=== PATIENT | male | born 1960 | race African-American/Black ===

== ENCOUNTER 2017-07-11 06:00 | Inpatient (IN) ==
[2017-07-11] MEDS ORDERED: DILTIAZEM 50 MG/10 ML VIAL IV STA (06:14)
[2017-07-11] MEDS ORDERED: ASPIRIN 325 MG TABLET PO STA (06:14)
--- NOTE | 2017-07-11 06:20 | Emergency Department Note ---
Rafa Duarte Brooke, am scribing for, and in the presence of, Eugenio Santamaria MD 06:16 . Hina Duarte James D, MD, personally performed the services described in this documentation, ascribed by Winifred Craig in my presence, and it is both accurate and complete 618 . Arrival - Arrival Chief Complaint: Chest Pain Stated Complaint: chest pain,SOB ED Nursing Triage Note: C/O Chest pain-midsternal and shortness of breath. Onset around 0500 while unloading a truck at work. Mode of Arrival: Ambulatory Limitations: No Limitations Source: Patient, RN Notes Reviewed Time Seen by Provider: 07/11/17 06:14 - History of Present Illness HPI Narrative: Patient is a 56 year old male who presents to the ED with c/o chest pain and shortness of breath that started around 0500 this morning. Patient says he feels "jittery" now. He has never been told, in the past, that he had an irregular heart beat. Patient says he was diaphoretic, when the pain started, but says he was unloading his truck. Patient is a truck sales manager. Patient has PMHx of HTN and dyslipidemia but does not have a history of diabetes or thyroid problems. Patient is not a smoker and does not do any drugs. Onset (ago): hour(s) (1) Allergies/Adverse Reactions: Allergies Allergy/AdvReac Type Severity Reaction Status Date / Time No Known Allergies Allergy Verified 07/11/17 06:05 Home Medications: Home Medications Medication Instructions Recorded Confirmed Type Pravastatin [Pravachol] 40 mg PO BEDTIME 07/11/17 07/11/17 History Valsartan [Diovan] 320 mg PO DAILY 07/11/17 07/11/17 History Review of System - Review of System 12 point system: reviewed and no additional remarkable complaints except as stated - Review of System Constitutional: Present: diaphoresis. Absent: fever Respiratory: Present: other (shortness of breath). Absent: respiratory distress Cardiovascular: Present: chest pain Skin: Absent: rash Medical,Surgical,& Family Hx - Medical History Cardio: History of: Hypertension Endocrine: History of: Dyslipidemia - Social History Smoking Status: Never smoker Frequency of Alcohol Use: None Type of Drug Use: None Exam Vital Signs: Vital Signs Temperature 98.8 F 07/11/17 06:05 Pulse Rate 101 H 07/11/17 06:09 Respiratory Rate 22 07/11/17 06:09 Blood Pressure 156/114 07/11/17 06:09 O2 Sat by Pulse Oximetry 98 07/11/17 06:09 GENERAL: This is a well-nourished well-developed black male in no apparent distress. VITAL SIGNS: Reviewed HEENT: Head is atraumatic and normocephalic. Pupils are equal round react to light. Extraocular movements are intact. Oropharynx is benign with moist mucous membranes. NECK: Neck is soft and supple without tenderness. There are no masses. There is no lymphadenopathy. LUNGS: Lungs are clear to auscultation. Chest rises symmetrically. There is no chest wall tenderness. CV: Heart is irregularly irregular with rapid rate without murmurs rubs or gallops. ABDOMEN: Abdomen is soft, nontender to palpation. There are no abdominal abnormal masses palpated. There is no organomegaly. Bowel sounds are present and active. SKIN: Skin is slightly cool and moist. No rash. EXTREMITIES: Patient has full range of motion without tenderness. There is no pedal edema. NEUROLOGIC: Awake alert and oriented 4. Cranial nerves II through XII are grossly intact. Motor is 5 over 5 in all extremities bilaterally. Course Course Narrative: Patient was given Cardizem bolus and infusion while in the emergency department. - Consultations Consultation #1: Discussed with hospitalist. Patient will be admitted to their service. Time: 08:07 Results - Labs CBC & BMP: 07/11/17 06:11 07/11/17 06:11 Lab Results: I have reviewed the patients labs Labs: Laboratory Tests 07/11/17 07/11/17 06:11 07:11 Troponin I < 0.015 TSH 3rd Generation 4.250 H Urine Opiates Screen Negative Ur Barbiturates Screen Negative Ur Phencyclidine Scrn Negative U Amphetamine/Methamph Negative U Benzodiazepines Scrn Negative U Cocaine Metab Screen Negative U Cannabinoids Screen Negative - EKG EKG results: interpreted by ERMD - Impressions EKG: Atrial fib with rapid ventricular response, rate 117, nonspecific ST-T wave changes, normal axis. - Diagnostic Findings Procedure: Chest x-ray: image reviewed by me (No infiltrates, no pleural effusions.) Critical Care Time Critical Care Time: No Disposition Clinical Impression: Atrial fibrillation with RVR, Essential hypertension, Hypokalemia Case discussed with: patient Disposition: Still a Patient Condition: Stable
[2017-07-11] MEDS ORDERED: DILTIAZEM INJ 100 MG in SODIUM CHLORIDE 0.9% 100 ML IV SCH (06:30)
[2017-07-11] MEDS ORDERED: DILTIAZEM 100 MG VIAL.ADD IV ONE (06:35)
[2017-07-11] MEDS ORDERED: SODIUM CHLORIDE 0.9% 100 ML IV ONE (06:35)
[2017-07-11] MEDS ORDERED: DILTIAZEM 50 MG/10 ML VIAL IV ONE (06:36)
[2017-07-11] MEDS ORDERED: ASPIRIN 325 MG TABLET ONE (06:36)
[2017-07-11 06:39] LABS: Basophils % 0.5 % (0.0-0.8); Eosinophils # 0.2 10*3/uL (0.0-0.87); Eosinophils % 2.6 % (0.00-10.9); Hematocrit 40.5 VOL% (42.0-52.0); Immature Granulocytes % 0.3 %; Immature Granulocytes Absolute 0.02 #; Lymphocytes # 2.4 10*3/uL (1.4-4.0); Lymphocytes % 32.2 % (21.2-54.2); Mean Corpuscular HGB Conc 34.6 GM/DL (32-36); Mean Corpuscular Hemoglobin 29 PG (27-34); Mean Corpuscular Volume 85.1 FL (87-102); Mean Platelet Volume 10.4 FL (9.6-12.0); Monocytes # 0.6 10*3/uL (0.11-0.8); Monocytes % 7.5 % (1.7-12.7); Neutrophils # 4.2 10*3/uL (1.4-7.4); Neutrophils % 56.9 % (38.7-73.9); Platelet Count 246 T/CUMM (130-400); Red Blood Count 4.76 MC/CUMM (3.8-5.5); Red Cell Distribution Width 14.1 % (9.3-17.3); White Blood Count 7.4 T/CUMM (4-12)
[2017-07-11 06:51] LABS: PT Patient Result 11.2 SECS; Partial Thromboplastin Time 29.4 SECS (0-40)
[2017-07-11 07:16] LABS: Free T4 (Free Thyroxine) 1.45 NG/DL (0.76-1.46); Magnesium 2.3 MG/DL (1.8-2.4)
[2017-07-11 07:23] LABS: Alanine Aminotransferase 30 U/L (16-61); Albumin 3.4 G/DL (3.4-5.0); Alkaline Phosphatase 112 U/L (45-117); Aspartate Amino Transferase 21 U/L (0-37); Blood Urea Nitrogen 21 MG/DL (7-18); Calcium 8.9 MG/DL (8.5-10.1); Glucose 99 MG/DL (74-106); Sodium 143 MMOL/L (136-145); Total Protein 7.4 G/DL (6.4-8.3); Troponin I Only < 0.015 NG/ML (0.00-0.045)
[2017-07-11 07:30] LABS: Barbiturates Screen,Urine Negative (Negative); Benzodiazepines Screen,Urine Negative (Negative); Cannabinoid Screen,Urine Negative (Negative); Opiate Screen,Urine Negative (Negative); Phencyclidine Screen,Urine Negative (Negative)
--- NOTE | 2017-07-11 08:01 | XRay Report ---
History: Atrial fibrillation. RVR Date: 07/11/2017 Study: Chest x-ray AP portable Comparison exam: No previous similar study available The cardiac silhouette is upper normal in size. There is no mediastinal mass. The pulmonary vasculature is not engorged. The lungs are generally clear for shallow breath. There is no gross pleural effusion. There is mild to moderate thoracic spondylosis. Impression: No acute cardiopulmonary process PROCEDURE INTERPRETED AT [facility] DEPARTMENT OF RADIOLOGY Final Report Signed by: Dr. Hannah White
[2017-07-11] MEDS ORDERED: POTASSIUM CHLORIDE 20 MEQ TABLET PO STA (08:07)
[2017-07-11] MEDS ORDERED: POTASSIUM CHLORIDE 20 MEQ TABLET PO ONE ×2 (08:23→18:35)
[2017-07-11] MEDS ORDERED: MORPHINE 2 MG/1 ML SYRINGE IV PRN (08:40)
[2017-07-11] MEDS ORDERED: ACETAMINOPHEN 325 MG TABLET PO PRN (08:40)
[2017-07-11] MEDS ORDERED: ONDANSETRON 4 MG/2 ML VIAL IV PRN (08:40)
[2017-07-11] MEDS ORDERED: ENOXAPARIN 40 MG/0.4 ML SYRINGE SUBCUT SCH (09:00)
[2017-07-11 09:02] LABS: Apearance,Urine CLEAR (Clear); Bilirubin,Urine Negative (Negative); Blood, Urine Small mg/dL (Negative); Glucose,Urine (UA) Negative (Negative); Ketones,Urine Negative (Negative); Mucus,Urine Occasional /LPF (Occasional); Nitrite,Urine Negative (Negative); Protein,Urine Negative; RBC,Urine 2 /HPF (0-4); Squamous Epithelial Cell,Urine Occasional /HPF (0-10); Urine Color Yellow (Yellow); Urine Specific Gravity 1.014 (1.001-1.035); Urine Urobilinogen < 2.0 EU/DL (0.2-1.0); WBC,Urine <1 /HPF (0-6)
--- NOTE | 2017-07-11 09:05 | Hospitalist History & Physical ---
Assessment and Plan - Time spent with patient Time spent with patient: Greater than 30 minutes (1) Atrial fibrillation with RVR Status: Acute Assessment and plan: 56 year of male who presented with chest pain. This appears to be new onset as the patient does not report a known history of Afib and is certainly not being anticoagulated appropriately for stroke prevention given his elevated BP and arrhythmia. He will be admitted and continued on Cardizem drip with hopeful transition to PO diltiazem by tomorrow. Anticoagulate with Lovenox 40mg. TSH is mildly elevated with normal free T4 level. Patient is hypokalemic while Mg remains normal. Will order a FLP to further assess risk for cardiovascular disease. Consult cardiology. Current Visit: Yes (2) Essential hypertension Status: Acute Assessment and plan: Uncontrolled with a DBP >100 on admission. Patient reports taking Diovan HCT daily. Will continue home meds while adding Coreg 6.125 PO BID. Current Visit: Yes (3) Hypokalemia Status: Acute Assessment and plan: K 3.0 on admission. Given 40 mEq K Dur in ED. Will continue to monitor K. Current Visit: Yes (4) FRANCHESCA (acute kidney injury) Status: Acute Assessment and plan: BUN 21 Cr 1.50. Will rehydrate with gentle IV fluids once BP allows for it. Avoid nephotoxic agents. Continue to monitor. Current Visit: Yes History of Present Illness Chief complaint: chest pain History of present illness: Mr. Parada is a 56 year old male with a past medical history and risk factors significant for hypertension, hyperlipidemia, and obesity who presents to the ED this morning with complaints of nonradiating chest pain having onset at around 0500 this morning. 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 He typically starts his day at 0300. Today, he reports, while loading his truck he began to experience some substernal chest pain and shortness of breath. He drove his delivery truck back to the "yard", got into his personal truck and drove himself to the ER for further evaluation. On admission, the patient was found to be in atrial fibrillation with RVR which has been controlled with IV Cardizem. He is also hypertensive with a DBP >100. The patient reports he did take his antihypertensive this morning, although later than usual. He describes his chest pain as substernal and nonradiating. He denies headache, pain on inspiration, diaphoresis, nausea/vomiting, numbness or tingling in his extremities. He reports the pain has subsided since presenting to the ER and starting ASA and O2 per NC. He only complains now of lower back pain while lying flat. Given the need to treat his new onset atrial fibrillation, the patient will be admitted to the ICU on [facility] dr through the hospital medicine service. This case has been discussed with Dr. Santamaria, ER physician, and Dr. Disla, admitting phyisician. Patient is a FULL CODE. Home medications have been reviewed and reconciled. Labs: WBC 7.4 hemoglobin 14.0 hematocrit 40.5 INR 1.0 sodium 143 potassium 3.0 chloride 109 BUN 21 creatinine 1.50 serum glucose 99 TSH 4.250 free T4 1.45. Urinalysis is unremarkable. Toxicology grossly negative. Home Medications Medication Instructions Recorded Confirmed Type Pravastatin [Pravachol] 40 mg PO BEDTIME 07/11/17 07/11/17 History Valsartan [Diovan] 320 mg PO DAILY 07/11/17 07/11/17 History Allergies Allergy/AdvReac Type Severity Reaction Status Date / Time No Known Allergies Allergy Verified 07/11/17 06:05 Medical,Surgical,& Family Hx - Medical History Cardio: History of: Hypertension Endocrine: History of: Dyslipidemia - Family History Family History: Reports;: Family Diabetes, Family Hypertension - Social History Smoking Status: Never smoker Frequency of Alcohol Use: None Type of Drug Use: None Marital Status: Lives With:: Spouse Functional capacity: independent ambulation 12 point system: reviewed and no additional remarkable complaints except as stated Exam - Constitutional Vitals: Period Temp Pulse Resp BP Sys/Stein Pulse Ox Last 24 Hr 98.0 F-98.8 F 76-107 20-22 123-156/78-116 97-100 Exam: General appearance: obese, no acute distress - Head Head exam: Present: normocephalic, atraumatic - Eye Eye exam: Present: EOMI. Absent: conjunctival injection, nystagmus Pupils: Present: KAYLAN, normal accommodation - ENT ENT exam: Present: normal exam, normal external ear exam - Neck Neck exam: Present: normal inspection. Absent: lymphadenopathy, tenderness, thyromegaly - Respiratory Respiratory exam: Present: clear to auscultation bilaterally. Absent: rales, rhonchi, wheezes - Cardiovascular Cardiovascular exam: Present: irregularly irregular. Absent: carotid bruit, gallop, rubs - GI/Abdominal GI/Abdominal exam: Present: normal bowel sounds. Absent: ascites, distended, mass - Extremities Exam Extremities exam: Present: normal inspection, normal capillary refill. Absent: edema - Back Exam Back exam: Absent: CVA tenderness (L), CVA tenderness (R) - Neurological Exam Neurological exam: Present: alert, oriented X3, CN II-XII intact, reflexes normal - Psychiatric Psychiatric exam: Present: normal affect, normal mood - Skin Skin exam: Present: normal color, warm, dry Results - Labs CBC & BMP: 07/11/17 06:11 07/11/17 06:11 Lab Results: I have reviewed the past 24 hour labs - EKG EKG results: interpreted by LAVELLED EKG shows: atrial fibrillation (c RVR) - Diagnostic Findings Procedure: Chest x-ray: image reviewed by me, report reviewed by me (Normal chest)
[2017-07-11 09:21] LABS: Risk Ratio 4.47; VLDL CHOLESTEROL 12.6 MG/DL
[2017-07-11] MEDS: PANTOPRAZOLE 40 MG TABLET PO SCH (09:54)
[2017-07-11] MEDS: CARVEDILOL 6.25 MG TABLET PO SCH ×2 (09:54→20:36)
[2017-07-11] MEDS: DEXT 5% NACL 0.45% KCL 20 MEQ 20 MEQ/1,000 ML BAG IV SCH ×2 (09:55→20:35)
[2017-07-11] MEDS: ENOXAPARIN 100 MG/ML SYRINGE SUBCUT SCH ×2 (10:28→21:14)
--- NOTE | 2017-07-11 11:16 | Order Completion Report ---
See report scanned to EMR
[2017-07-11] MEDS: POTASSIUM CHLORIDE 20 MEQ TABLET PO PRN ×2 (12:55→14:18)
--- NOTE | 2017-07-11 13:42 | Cardiology Consult Note ---
<Mary Solorzano - Last Filed: 07/11/17 15:32> Assessment and Plan - Time spent with patient Time spent with patient: Greater than 30 minutes (1) Chest pain Status: Acute Assessment and plan: SEE PLAN OF CARE LISTED BELOW. Current Visit: Yes (2) Atrial fibrillation with RVR Status: Acute Assessment and plan: SEE PLAN OF CARE LISTED BELOW. Current Visit: Yes (3) Dyslipidemia Status: Chronic Assessment and plan: SEE PLAN OF CARE LISTED BELOW. Current Visit: Yes (4) Renal insufficiency Status: Acute Assessment and plan: SEE PLAN OF CARE LISTED BELOW. Current Visit: Yes (5) Essential hypertension Status: Chronic Assessment and plan: SEE PLAN OF CARE LISTED BELOW. Current Visit: Yes (6) Hypokalemia Status: Acute Assessment and plan: SEE PLAN OF CARE LISTED BELOW. Current Visit: Yes (7) Obesity Status: Chronic Assessment and plan: SEE PLAN OF CARE LISTED BELOW. Current Visit: Yes History of Present Illness - Data of Consult Patient: new to practice Consult date: 07/11/17 Requesting Physician: Rashawn Rogers - Consult Narrative Reason for consult: New onset atrial fibrillation with rapid ventricular response History of present illness: SILVICULTURIST: New to cardiology, Dr. De La Rosa PCP: Debra Watkins NP Mr. Parada is a 56 year old male without known history of coronary artery disease, not routinely followed by cardiology. Cardiac risk factors include:, Hyperlipidemia, Hypertension, obesity and sedentary lifestyle. Lifetime non- smoker. Patient denies previous history of atrial fibrillation. Never undergone cardiac workup including heart catheterization or stress testing. 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 Patient presented to [facility] this morning after experiencing substernal chest pain and shortness of breath while unloading his food truck. He describes his pain as a sharp stabbing pain. Nonradiating. Associated with shortness of breath. Denies diaphoresis and nausea. Denies heart racing and palpitations. He reports that this is the first time he has ever experienced these symptoms and he felt as though he should be further evaluated in the emergency department. When he arrived in the ER, he was noted to be in A. fib RVR. Heart rate of 117. IV Cardizem was initiated. Patient was admitted under hospital medicine's service. Housed in the ICU. Cardiology was called to further evaluate. Of note, patient denies any previous exertional chest pain, change in exercise tolerance or dyspnea on exertion. He reports that he walks at least 5-6 miles a day. He does this without problems. Patient was seen and examined in the ICU. He remains in atrial fibrillation. He is now rate controlled with IV Cardizem. I have transition him to p.o. Cardizem. He is no longer experiencing any chest pain, heaviness or tightness. Cardiac biomarkers have been negative. I suspect that his chest pain was related to his underlying A. fib. However, patient does have several cardiac risk factors and may benefit from further cardiac workup. This may be done as an outpatient. His A. fib is a new diagnosis and I suspect that patient will need chronic anticoagulation to reduce his stroke risk. His chads vascular score is 2. He is being anticoagulated currently with therapeutic Lovenox. I discussed this with the patient and he is agreeable to begin NOAC. He has no contraindications to anticoagulation. I will further discuss with Dr. De La Rosa and await his additional recommendations. IMPRESSION AND PLAN 1. NEW ONSET ATRIAL FIBRILLATION WITH RAPID VENTRICULAR RESPONSE - This is a new diagnosis. Chronicity is unknown. This could be related to his hypokalemia. Patient is now rate controlled with IV diltiazem. I will transition patient to p.o. today. TSH is slightly elevated. Free T4 normal. Potassium 3.0 at admission. This is currently being replaced. Echocardiogram pending. Chads vas score is 2. I suspect that patient will need chronic anticoagulation to reduce his stroke risk prior to discharge. He is being anticoagulated currently with therapeutic Lovenox. I discussed this with the patient and he is agreeable to begin NOAC. He has no contraindications to anticoagulation. I will further discuss with Dr. De La Rosa and await his additional recommendations. 2. HYPERTENSION - Blood pressure under well control. Will continue to monitor blood pressure and adjust medications accordingly. 3. DYSLIPIDEMIA - LDL 159. Cholesterol 219. I will change patient's pravastatin to high intensity statin. 4. OBESITY - Weight loss encouraged via regular exercise and dietary restriction. 5. HYPOKALEMIA - Suspect that this has caused patient's atrial fibrillation. This is being replaced via patient's IV fluids. 6. BORDERLINE DIABETIC - Hemoglobin A1c is 6.1. I would defer management this to attending. 7. SUBSTERNAL CHEST PAIN - Feel as though this is related to patient's atrial fibrillation with RVR. Cardiac biomarkers have been negative 3. However, patient does have several cardiac risk factors and may benefit from further cardiac workup. This could be done as an outpatient. Continue aspirin, lipid- lowering agent and beta-blockade for further risk stratification. Echocardiogram pending. Will further discuss with Dr. De La Rosa and await his additional recommendations. 8. RENAL INSUFFICIENCY - Creatinine 1.5 with BUN 21. Patient appears dehydrated and is being hydrated with IV fluids. We will monitor this with daily BMP. CC: Gudelia Disla MD - Home Medications and Allergies Home Medications: Home Medications Medication Instructions Recorded Confirmed Type Pravastatin [Pravachol] 40 mg PO BEDTIME 07/11/17 07/11/17 History Valsartan [Diovan] 320 mg PO DAILY 07/11/17 07/11/17 History Allergies/Adverse Reactions: Allergies Allergy/AdvReac Type Severity Reaction Status Date / Time No Known Allergies Allergy Verified 07/11/17 06:05 - Constitutional Constitutional: Present: as per HPI, fatigue. Absent: daytime sleepiness, fever (s), frequent falls, headache(s), weakness, weight gain, weight loss - Cardiovascular Cardiovascular: Present: as per HPI, dyspnea, other (Sharp chest pain). Absent : claudication, diaphoresis, edema, radiating jaw, neck or arm pain, lightheadedness, orthopnea, palpitations, PND - Respiratory Respiratory: Present: as per HPI, dyspnea. Absent: hemoptysis, wheezing, snoring, pain on inspiration, change in phlegm color - Gastrointestinal Gastrointestinal: Present: as per HPI. Absent: abdominal pain, change in bowel habits, coffee ground emesis, heartburn, hematemesis, hematochezia, melena, nausea, vomiting - Neurological Neurological: Present: as per HPI. Absent: abnormal gait, abnormal speech, behavioral changes, disequilibrium, dizziness, focal weakness, frequent falls, syncope - Psychiatric Psychiatric: Present: as per HPI. Absent: anxiety, depression, panic attacks - Hematologic/Lymphatic Hematologic/Lymphatic: Present: as per HPI. Absent: easy bleeding, easy bruising, lymphadenopathy Medical,Surgical,& Family Hx - Medical History Cardio: History of: Hypertension Endocrine: History of: Dyslipidemia - Family History Family History: Reports;: Family Diabetes, Family Hypertension, Additional Family History (sister has pacemaker. brother had heart transplant) - Social History Smoking Status: Never smoker Frequency of Alcohol Use: None Type of Drug Use: None Functional capacity: independent ambulation Physical Examination Vital Signs Temp Pulse Resp BP Pulse Ox 98.8 F 107 H 20 153/116 97 07/11/17 06:05 07/11/17 06:05 07/11/17 06:05 07/11/17 06:05 07/11/17 06:05 Exam: General: Appears well with no apparent distress. Pleasant and cooperative. Appears comfortable. HEENT: PERRL, normocephalic, atraumatic. Mucous membranes moist. No jaundice noted. Conjunctiva moist and clear, sclerae anicteric Neck: No JVD/HJR, no thyromegaly or lymphadenopathy noted. No carotid bruit appreciated Cardiac: Irregular rhythm, rate controlled. No murmur rub or gallop. Lungs: Clear to auscultation without accessory muscle use to assist the respiratory pattern. Not requiring oxygen. Abdomen: Soft, bowel sounds normoactive. Nontender and nondistended. No abdominal bruit or thrill noted. No masses noted. Extremities: No clubbing, cyanosis noted. No edema noted. Upper extremity pulses 2+. Lower extremity pulses 2+. Capillary refill less than 3 seconds. Skin: No unusual lesions or rashes. No skin breakdown appreciated. Neuro: Awake, alert and oriented 3. Moves all extremities well without hemiparesis or paralysis. No essential tremor is appreciated. Result/EKG - Labs CBC & BMP: 07/11/17 06:11 07/11/17 11:28 Lab Results: I have reviewed the past 24 hour labs Labs: Laboratory Results - last 24 hr 07/11/17 07/11/17 07/11/17 06:11 06:11 06:11 WBC 7.4 RBC 4.76 Hgb 14.0 Hct 40.5 L MCV 85.1 L MCH 29 MCHC 34.6 RDW 14.1 Plt Count 246 MPV 10.4 Neut % (Auto) 56.9 Lymph % (Auto) 32.2 [place] % (Auto) 7.5 Eos % (Auto) 2.6 Baso % (Auto) 0.5 Neut # (Auto) 4.2 Lymph # (Auto) 2.4 [place] # (Auto) 0.6 Eos # (Auto) 0.2 Baso # (Auto) 0.0 Immature Gran % 0.3 Nucleated RBC % 0.0 Immature Gran # 0.02 Nucleated RBCs # 0.00 Immature Plt Fraction 0.0 INR 1.0 PT Patient/Control Mix 11.2 Circ Anticoag PTT 29.4 Sodium Potassium Chloride Carbon Dioxide Anion Gap BUN Creatinine GFR Calculation BUN/Creatinine Ratio Glucose Hemoglobin A1c Calculated Osmolality Calcium Magnesium 2.3 Total Bilirubin AST ALT Alkaline Phosphatase Troponin I Total Protein Albumin Globulin Albumin/Globulin Ratio Triglycerides Cholesterol LDL Cholesterol VLDL Cholesterol HDL Cholesterol Heart Disease Risk Ratio Free T4 1.45 TSH 3rd Generation Urine Color Urine Appearance Urine pH Ur Specific [place] Urine Protein Urine Glucose (UA) Urine Ketones Urine Blood Urine Nitrate Urine Bilirubin Urine Urobilinogen Urine Leukocytes Urine RBC Urine WBC Ur Squamous Epith Cells Urine Mucus Ur Culture Indicated? Urine Opiates Screen Ur Barbiturates Screen Ur Phencyclidine Scrn U Amphetamine/Methamph U Benzodiazepines Scrn U Cocaine Metab Screen U Cannabinoids Screen 07/11/17 07/11/17 07/11/17 06:11 06:11 06:11 WBC RBC Hgb Hct MCV MCH MCHC RDW Plt Count MPV Neut % (Auto) Lymph % (Auto) [place] % (Auto) Eos % (Auto) Baso % (Auto) Neut # (Auto) Lymph # (Auto) [place] # (Auto) Eos # (Auto) Baso # (Auto) Immature Gran % Nucleated RBC % Immature Gran # Nucleated RBCs # Immature Plt Fraction INR PT Patient/Control Mix Circ Anticoag PTT Sodium 143 Potassium 3.0 L Chloride 109 H Carbon Dioxide 27 Anion Gap 10.0 BUN 21 H Creatinine 1.50 H GFR Calculation 72 BUN/Creatinine Ratio 14.00 Glucose 99 Hemoglobin A1c 6.1 Calculated Osmolality 287.0 Calcium 8.9 Magnesium Total Bilirubin 0.50 AST 21 ALT 30 Alkaline Phosphatase 112 Troponin I < 0.015 Total Protein 7.4 Albumin 3.4 Globulin 4.0 H Albumin/Globulin Ratio 0.8 L Triglycerides 63 Cholesterol 219 H LDL Cholesterol 159.0 VLDL Cholesterol 12.6 HDL Cholesterol 49 Heart Disease Risk Ratio 4.47 Free T4 TSH 3rd Generation 4.250 H Urine Color Urine Appearance Urine pH Ur Specific [place] Urine Protein Urine Glucose (UA) Urine Ketones Urine Blood Urine Nitrate Urine Bilirubin Urine Urobilinogen Urine Leukocytes Urine RBC Urine WBC Ur Squamous Epith Cells Urine Mucus Ur Culture Indicated? Urine Opiates Screen Ur Barbiturates Screen Ur Phencyclidine Scrn U Amphetamine/Methamph U Benzodiazepines Scrn U Cocaine Metab Screen U Cannabinoids Screen 07/11/17 07/11/17 07/11/17 07:11 07:11 09:15 WBC RBC Hgb Hct MCV MCH MCHC RDW Plt Count MPV Neut % (Auto) Lymph % (Auto) [place] % (Auto) Eos % (Auto) Baso % (Auto) Neut # (Auto) Lymph # (Auto) [place] # (Auto) Eos # (Auto) Baso # (Auto) Immature Gran % Nucleated RBC % Immature Gran # Nucleated RBCs # Immature Plt Fraction INR PT Patient/Control Mix Circ Anticoag PTT Sodium Potassium Chloride Carbon Dioxide Anion Gap BUN Creatinine GFR Calculation BUN/Creatinine Ratio Glucose Hemoglobin A1c Calculated Osmolality Calcium Magnesium Total Bilirubin AST ALT Alkaline Phosphatase Troponin I < 0.015 Total Protein Albumin Globulin Albumin/Globulin Ratio Triglycerides Cholesterol LDL Cholesterol VLDL Cholesterol HDL Cholesterol Heart Disease Risk Ratio Free T4 TSH 3rd Generation Urine Color Yellow Urine Appearance Clear Urine pH 6.0 Ur Specific [place] 1.014 Urine Protein Negative Urine Glucose (UA) Negative Urine Ketones Negative Urine Blood Small Urine Nitrate Negative Urine Bilirubin Negative Urine Urobilinogen < 2.0 H Urine Leukocytes Negative Urine RBC 2 Urine WBC <1 Ur Squamous Epith Cells Occasional Urine Mucus Occasional Ur Culture Indicated? Not indicated Urine Opiates Screen Negative Ur Barbiturates Screen Negative Ur Phencyclidine Scrn Negative U Amphetamine/Methamph Negative U Benzodiazepines Scrn Negative U Cocaine Metab Screen Negative U Cannabinoids Screen Negative 07/11/17 07/11/17 11:28 11:30 WBC RBC Hgb Hct MCV MCH MCHC RDW Plt Count MPV Neut % (Auto) Lymph % (Auto) [place] % (Auto) Eos % (Auto) Baso % (Auto) Neut # (Auto) Lymph # (Auto) [place] # (Auto) Eos # (Auto) Baso # (Auto) Immature Gran % Nucleated RBC % Immature Gran # Nucleated RBCs # Immature Plt Fraction INR PT Patient/Control Mix Circ Anticoag PTT Sodium Potassium 3.2 L Chloride Carbon Dioxide Anion Gap BUN Creatinine GFR Calculation BUN/Creatinine Ratio Glucose Hemoglobin A1c Calculated Osmolality Calcium Magnesium Total Bilirubin AST ALT Alkaline Phosphatase Troponin I < 0.015 Total Protein Albumin Globulin Albumin/Globulin Ratio Triglycerides Cholesterol LDL Cholesterol VLDL Cholesterol HDL Cholesterol Heart Disease Risk Ratio Free T4 TSH 3rd Generation Urine Color Urine Appearance Urine pH Ur Specific [place] Urine Protein Urine Glucose (UA) Urine Ketones Urine Blood Urine Nitrate Urine Bilirubin Urine Urobilinogen Urine Leukocytes Urine RBC Urine WBC Ur Squamous Epith Cells Urine Mucus Ur Culture Indicated? Urine Opiates Screen Ur Barbiturates Screen Ur Phencyclidine Scrn U Amphetamine/Methamph U Benzodiazepines Scrn U Cocaine Metab Screen U Cannabinoids Screen - EKG EKG results: interpreted by me EKG shows: atrial fibrillation <Reynaldo De La Rosa - Last Filed: 07/11/17 18:55> History of Present Illness - Consult Narrative History of present illness: The patient personally interviewed and examined by me and chart reviewed. Discussed the patient's case with Mary Solorzano NP. I agree with the evaluation history as well as assessment and plan as stated. Mr. Parada is a 56 year old male who was admitted with sharp atypical chest pain for cardiac disease. He was found in atrial fibrillation with increased ventricular spots greater than 100 bpm that was asymptomatic to him. He was admitted started on Cardizem infusion with slowing his heart rate. With the starting of oral medications his heart rates have been better. His blood pressures have been elevated. This is being treated. His echocardiogram reveals ejection fraction of 50% with at least mild concentric left ventricular hypertrophy and the question of bicuspid aortic valve. Valve structures otherwise are unremarkable. The patient is a candidate for anticoagulation and Eliquis would be appropriate for him. I think we can stop his Lovenox after his last dose to start Eliquis in the morning. The patient's renal insufficiency but he meets criteria for 5 mg p.o. twice daily this medication. Since we do not know when his atrial ablation really started we will anticoagulate for at least 3+ weeks and try to manage his blood pressure. He can be follow-up as an outpatient. CC: Gudelia Disla MD Physical Examination Vital Signs Temp Pulse Resp BP Pulse Ox 98.8 F 107 H 20 153/116 97 07/11/17 06:05 07/11/17 06:05 07/11/17 06:05 07/11/17 06:05 07/11/17 06:05 Result/EKG - Labs CBC & BMP: 07/11/17 06:11 07/11/17 16:54 Labs: Laboratory Results - last 24 hr 07/11/17 07/11/17 07/11/17 06:11 06:11 06:11 WBC 7.4 RBC 4.76 Hgb 14.0 Hct 40.5 L MCV 85.1 L MCH 29 MCHC 34.6 RDW 14.1 Plt Count 246 MPV 10.4 Neut % (Auto) 56.9 Lymph % (Auto) 32.2 [place] % (Auto) 7.5 Eos % (Auto) 2.6 Baso % (Auto) 0.5 Neut # (Auto) 4.2 Lymph # (Auto) 2.4 [place] # (Auto) 0.6 Eos # (Auto) 0.2 Baso # (Auto) 0.0 Immature Gran % 0.3 Nucleated RBC % 0.0 Immature Gran # 0.02 Nucleated RBCs # 0.00 Immature Plt Fraction 0.0 INR 1.0 PT Patient/Control Mix 11.2 Circ Anticoag PTT 29.4 Sodium Potassium Chloride Carbon Dioxide Anion Gap BUN Creatinine GFR Calculation BUN/Creatinine Ratio Glucose Hemoglobin A1c Calculated Osmolality Calcium Magnesium 2.3 Total Bilirubin AST ALT Alkaline Phosphatase Troponin I Total Protein Albumin Globulin Albumin/Globulin Ratio Triglycerides Cholesterol LDL Cholesterol VLDL Cholesterol HDL Cholesterol Heart Disease Risk Ratio Free T4 1.45 TSH 3rd Generation Urine Color Urine Appearance Urine pH Ur Specific [place] Urine Protein Urine Glucose (UA) Urine Ketones Urine Blood Urine Nitrate Urine Bilirubin Urine Urobilinogen Urine Leukocytes Urine RBC Urine WBC Ur Squamous Epith Cells Urine Mucus Ur Culture Indicated? Urine Opiates Screen Ur Barbiturates Screen Ur Phencyclidine Scrn U Amphetamine/Methamph U Benzodiazepines Scrn U Cocaine Metab Screen U Cannabinoids Screen 07/11/17 07/11/17 07/11/17 06:11 06:11 06:11 WBC RBC Hgb Hct MCV MCH MCHC RDW Plt Count MPV Neut % (Auto) Lymph % (Auto) [place] % (Auto) Eos % (Auto) Baso % (Auto) Neut # (Auto) Lymph # (Auto) [place] # (Auto) Eos # (Auto) Baso # (Auto) Immature Gran % Nucleated RBC % Immature Gran # Nucleated RBCs # Immature Plt Fraction INR PT Patient/Control Mix Circ Anticoag PTT Sodium 143 Potassium 3.0 L Chloride 109 H Carbon Dioxide 27 Anion Gap 10.0 BUN 21 H Creatinine 1.50 H GFR Calculation 72 BUN/Creatinine Ratio 14.00 Glucose 99 Hemoglobin A1c 6.1 Calculated Osmolality 287.0 Calcium 8.9 Magnesium Total Bilirubin 0.50 AST 21 ALT 30 Alkaline Phosphatase 112 Troponin I < 0.015 Total Protein 7.4 Albumin 3.4 Globulin 4.0 H Albumin/Globulin Ratio 0.8 L Triglycerides 63 Cholesterol 219 H LDL Cholesterol 159.0 VLDL Cholesterol 12.6 HDL Cholesterol 49 Heart Disease Risk Ratio 4.47 Free T4 TSH 3rd Generation 4.250 H Urine Color Urine Appearance Urine pH Ur Specific [place] Urine Protein Urine Glucose (UA) Urine Ketones Urine Blood Urine Nitrate Urine Bilirubin Urine Urobilinogen Urine Leukocytes Urine RBC Urine WBC Ur Squamous Epith Cells Urine Mucus Ur Culture Indicated? Urine Opiates Screen Ur Barbiturates Screen Ur Phencyclidine Scrn U Amphetamine/Methamph U Benzodiazepines Scrn U Cocaine Metab Screen U Cannabinoids Screen 07/11/17 07/11/17 07/11/17 07:11 07:11 09:15 WBC RBC Hgb Hct MCV MCH MCHC RDW Plt Count MPV Neut % (Auto) Lymph % (Auto) [place] % (Auto) Eos % (Auto) Baso % (Auto) Neut # (Auto) Lymph # (Auto) [place] # (Auto) Eos # (Auto) Baso # (Auto) Immature Gran % Nucleated RBC % Immature Gran # Nucleated RBCs # Immature Plt Fraction INR PT Patient/Control Mix Circ Anticoag PTT Sodium Potassium Chloride Carbon Dioxide Anion Gap BUN Creatinine GFR Calculation BUN/Creatinine Ratio Glucose Hemoglobin A1c Calculated Osmolality Calcium Magnesium Total Bilirubin AST ALT Alkaline Phosphatase Troponin I < 0.015 Total Protein Albumin Globulin Albumin/Globulin Ratio Triglycerides Cholesterol LDL Cholesterol VLDL Cholesterol HDL Cholesterol Heart Disease Risk Ratio Free T4 TSH 3rd Generation Urine Color Yellow Urine Appearance Clear Urine pH 6.0 Ur Specific [place] 1.014 Urine Protein Negative Urine Glucose (UA) Negative Urine Ketones Negative Urine Blood Small Urine Nitrate Negative Urine Bilirubin Negative Urine Urobilinogen < 2.0 H Urine Leukocytes Negative Urine RBC 2 Urine WBC <1 Ur Squamous Epith Cells Occasional Urine Mucus Occasional Ur Culture Indicated? Not indicated Urine Opiates Screen Negative Ur Barbiturates Screen Negative Ur Phencyclidine Scrn Negative U Amphetamine/Methamph Negative U Benzodiazepines Scrn Negative U Cocaine Metab Screen Negative U Cannabinoids Screen Negative 07/11/17 07/11/17 07/11/17 11:28 11:30 15:26 WBC RBC Hgb Hct MCV MCH MCHC RDW Plt Count MPV Neut % (Auto) Lymph % (Auto) [place] % (Auto) Eos % (Auto) Baso % (Auto) Neut # (Auto) Lymph # (Auto) [place] # (Auto) Eos # (Auto) Baso # (Auto) Immature Gran % Nucleated RBC % Immature Gran # Nucleated RBCs # Immature Plt Fraction INR PT Patient/Control Mix Circ Anticoag PTT Sodium Potassium 3.2 L Chloride Carbon Dioxide Anion Gap BUN Creatinine GFR Calculation BUN/Creatinine Ratio Glucose Hemoglobin A1c Calculated Osmolality Calcium Magnesium Total Bilirubin AST ALT Alkaline Phosphatase Troponin I < 0.015 < 0.015 Total Protein Albumin Globulin Albumin/Globulin Ratio Triglycerides Cholesterol LDL Cholesterol VLDL Cholesterol HDL Cholesterol Heart Disease Risk Ratio Free T4 TSH 3rd Generation Urine Color Urine Appearance Urine pH Ur Specific [place] Urine Protein Urine Glucose (UA) Urine Ketones Urine Blood Urine Nitrate Urine Bilirubin Urine Urobilinogen Urine Leukocytes Urine RBC Urine WBC Ur Squamous Epith Cells Urine Mucus Ur Culture Indicated? Urine Opiates Screen Ur Barbiturates Screen Ur Phencyclidine Scrn U Amphetamine/Methamph U Benzodiazepines Scrn U Cocaine Metab Screen U Cannabinoids Screen 07/11/17 16:54 WBC RBC Hgb Hct MCV MCH MCHC RDW Plt Count MPV Neut % (Auto) Lymph % (Auto) [place] % (Auto) Eos % (Auto) Baso % (Auto) Neut # (Auto) Lymph # (Auto) [place] # (Auto) Eos # (Auto) Baso # (Auto) Immature Gran % Nucleated RBC % Immature Gran # Nucleated RBCs # Immature Plt Fraction INR PT Patient/Control Mix Circ Anticoag PTT Sodium Potassium 3.5 Chloride Carbon Dioxide Anion Gap BUN Creatinine GFR Calculation BUN/Creatinine Ratio Glucose Hemoglobin A1c Calculated Osmolality Calcium Magnesium Total Bilirubin AST ALT Alkaline Phosphatase Troponin I Total Protein Albumin Globulin Albumin/Globulin Ratio Triglycerides Cholesterol LDL Cholesterol VLDL Cholesterol HDL Cholesterol Heart Disease Risk Ratio Free T4 TSH 3rd Generation Urine Color Urine Appearance Urine pH Ur Specific [place] Urine Protein Urine Glucose (UA) Urine Ketones Urine Blood Urine Nitrate Urine Bilirubin Urine Urobilinogen Urine Leukocytes Urine RBC Urine WBC Ur Squamous Epith Cells Urine Mucus Ur Culture Indicated? Urine Opiates Screen Ur Barbiturates Screen Ur Phencyclidine Scrn U Amphetamine/Methamph U Benzodiazepines Scrn U Cocaine Metab Screen U Cannabinoids Screen
--- NOTE | 2017-07-11 14:58 | Order Completion Report ---
See report scanned to EMR
[2017-07-11] MEDS ORDERED: DILTIAZEM 60 MG TABLET PO ONE (16:19)
[2017-07-11] MEDS: DILTIAZEM 60 MG TABLET PO SCH (20:37)
[2017-07-11] MEDS ORDERED: DILTIAZEM 60 MG TABLET PO SCH (21:00)
[2017-07-11] MEDS ORDERED: PRAVASTATIN 40 MG TABLET PO SCH (21:00)
[2017-07-11] MEDS ORDERED: ROSUVASTATIN 20 MG TABLET PO SCH (21:00)
[2017-07-12 05:04] LABS: Basophils % 0.3 % (0.0-0.8); Eosinophils # 0.3 10*3/uL (0.0-0.87); Eosinophils % 3.3 % (0.00-10.9); Hematocrit 38.7 VOL% (42.0-52.0); Hemoglobin 13.1 GM/DL (14.0-18.0); Immature Granulocytes % 0.3 %; Immature Granulocytes Absolute 0.02 #; Lymphocytes # 2.1 10*3/uL (1.4-4.0); Lymphocytes % 27.4 % (21.2-54.2); Mean Corpuscular HGB Conc 33.9 GM/DL (32-36); Mean Corpuscular Hemoglobin 30 PG (27-34); Mean Corpuscular Volume 87.4 FL (87-102); Mean Platelet Volume 10.8 FL (9.6-12.0); Monocytes # 0.5 10*3/uL (0.11-0.8); Neutrophils # 4.7 10*3/uL (1.4-7.4); Neutrophils % 61.7 % (38.7-73.9); Platelet Count 235 T/CUMM (130-400); Red Blood Count 4.43 MC/CUMM (3.8-5.5); Red Cell Distribution Width 14.6 % (9.3-17.3); White Blood Count 7.6 T/CUMM (4-12)
[2017-07-12] MEDS: POTASSIUM CHLORIDE 20 MEQ TABLET PO PRN ×2 (05:53→07:44)
[2017-07-12] MEDS: DEXT 5% NACL 0.45% KCL 20 MEQ 20 MEQ/1,000 ML BAG IV SCH (05:54)
[2017-07-12 06:05] LABS: Calcium 8.5 MG/DL (8.5-10.1); Magnesium 2.1 MG/DL (1.8-2.4); Osmolality,Calculated 284.1 MOS/KG (273-304); Potassium 4.1 MMOL/L (3.5-5.1)
[2017-07-12 06:13] LABS: Calcium 8.6 MG/DL (8.5-10.1); Potassium 4.1 MMOL/L (3.5-5.1)
--- NOTE | 2017-07-12 06:30 | Order Completion Report ---
See report scanned to EMR
[2017-07-12] MEDS: DILTIAZEM 60 MG TABLET PO SCH (08:08)
[2017-07-12] MEDS: PANTOPRAZOLE 40 MG TABLET PO SCH (08:09)
[2017-07-12] MEDS: CARVEDILOL 6.25 MG TABLET PO SCH (08:09)
[2017-07-12] MEDS: CARVEDILOL 12.5 MG TABLET PO SCH ×2 (08:11→08:14)
--- NOTE | 2017-07-12 08:21 | Cardiology Progress Note ---
<Mary Solorzano - Last Filed: 07/12/17 08:08> Assessment and Plan (1) Chest pain Status: Acute Assessment and plan: SEE PLAN OF CARE LISTED BELOW. (2) Atrial fibrillation with RVR Status: Acute Assessment and plan: SEE PLAN OF CARE LISTED BELOW. (3) Dyslipidemia Status: Chronic Assessment and plan: SEE PLAN OF CARE LISTED BELOW. (4) Renal insufficiency Status: Acute Assessment and plan: SEE PLAN OF CARE LISTED BELOW. (5) Essential hypertension Status: Chronic Assessment and plan: SEE PLAN OF CARE LISTED BELOW. (6) Hypokalemia Status: Acute Assessment and plan: SEE PLAN OF CARE LISTED BELOW. (7) Obesity Status: Chronic Assessment and plan: SEE PLAN OF CARE LISTED BELOW. Cardiology - PN: Subj Interval history: BAG HANGER: New to cardiology, Dr. De La Rosa PCP: Debra Watkins NP SUMMARY Mr. Parada is a 56 year old male without known history of coronary artery disease, not routinely followed by cardiology. Cardiac risk factors include:, Hyperlipidemia, Hypertension, obesity and sedentary lifestyle. Lifetime non- smoker. Patient denies previous history of atrial fibrillation. Never undergone cardiac workup including heart catheterization or stress testing. Patient presented to [facility] July 11, 2017 with atrial fibrillation with rapid ventricular response. This was a new diagnosis. Subsequently, cardiology was consulted to further assist. Patient was started on IV diltiazem. This was transitioned to p.o. yesterday. Patient has tolerated well and continues to be rate controlled. Asymptomatic. NOAC was initiated this morning for stroke prevention as his chads vasc score was 2. Echocardiogram was performed and revealed normal sized LV with ejection fraction 50%. Mild concentric LVH. Mildly dilated right atrium. Aortic valve may be a bicuspid structure. It is functionally normal without evidence of stenosis or insufficiency. Other valves are structurally normal. Unable to measure diastolic function due to atrial fibrillation. 2016 Patient was seen and examined in the ICU. He did well overnight without any complications. He is without complaints. He remains in atrial fibrillation, rate controlled. Asymptomatic. Denies chest pain, heaviness or tightness. Denies shortness of breath. Eliquis was initiated this morning for stroke prevention. Potassium today has improved to 4.1. Patient will most likely need prescription for potassium at discharge. I have also added vitamin C. Patient's blood pressure is probably controlled this morning. I have increased his beta blockade as this will assist with pressure as well as rate control. Patient may be eligible for discharge later this afternoon if his blood pressure improves. He will need to follow-up with Dr. De La Rosa in approximately 2 weeks with EKG, CBC and BMP with magnesium. I will further discuss with Dr. De La Rosa and await his additional recommendations. IMPRESSION AND PLAN 1. NEW ONSET ATRIAL FIBRILLATION WITH RAPID VENTRICULAR RESPONSE - This is a new diagnosis. Chronicity is unknown. This could be related to his hypokalemia which has improved today after replacement. Patient continues to be in atrial fibrillation. Now rate controlled with current medication regimen. His blood pressure continues to be suboptimally controlled. I will increase his beta blockade today as this will also assist with optimal rate control. Chads vas score is 2. Eliquis initiated today. I have instructed the nurse to provide patient with Eliquis card at discharge for the first 30 days free. Patient may be candidate for cardioversion after being on Eliquis for at least one month. I have discussed this with the patient. I will further discuss with Dr. De La Rosa and await his additional recommendations. 2. HYPERTENSION - Blood pressure suboptimally controlled this morning. Diastolic blood pressure above 100. I will increase his beta blockade dose today as this will assist with blood pressure as well as rate control. 3. DYSLIPIDEMIA - LDL 159. Cholesterol 219. I will change patient's pravastatin to high intensity statin. He will need repeat lipid panel in 4-6 weeks. 4. OBESITY - Weight loss encouraged via regular exercise and dietary restriction. 5. HYPOKALEMIA - Resolved. Suspect that this has contributed to patient's atrial fibrillation. Continue replacement protocol. Patient will need potassium prescription at discharge. 6. BORDERLINE DIABETIC - Hemoglobin A1c is 6.1. I would defer management this to attending. 7. SUBSTERNAL CHEST PAIN - Feel as though this was related to patient's atrial fibrillation with RVR. Cardiac biomarkers have been negative 3. However, patient does have several cardiac risk factors and may benefit from further cardiac workup. This could be done as an outpatient. Continue aspirin , lipid-lowering agent and beta-blockade to provide further risk stratification. Echocardiogram revealed ejection fraction of 50%. No regional wall motion abnormality. Will further discuss with Dr. De La Rosa and await his additional recommendations. 8. RENAL INSUFFICIENCY - Improved. Creatinine 1.4 with BUN 16. Patient appears dehydrated and is being hydrated with IV fluids. We will monitor this with daily BMP. Exam (Progress Note) - Constitutional Vitals: Period Temp Pulse Resp BP Sys/Stein Pulse Ox Last 24 Hr 96.7 F-98.1 F 58-96 14-23 93-160/52-120 96-100 Exam: General: Appears well with no apparent distress. Pleasant and cooperative. Appears comfortable. HEENT: PERRL, normocephalic, atraumatic. Mucous membranes moist. No jaundice noted. Conjunctiva moist and clear, sclerae anicteric Neck: No JVD/HJR, no thyromegaly or lymphadenopathy noted. No carotid bruit appreciated Cardiac: Irregular rhythm, rate controlled. No murmur rub or gallop. Lungs: Clear to auscultation without accessory muscle use to assist the respiratory pattern. Not requiring oxygen. Abdomen: Soft, bowel sounds normoactive. Nontender and nondistended. No abdominal bruit or thrill noted. No masses noted. Extremities: No clubbing, cyanosis noted. No edema noted. Upper extremity pulses 2+. Lower extremity pulses 2+. Capillary refill less than 3 seconds. Skin: No unusual lesions or rashes. No skin breakdown appreciated. Neuro: Awake, alert and oriented 3. Moves all extremities well without hemiparesis or paralysis. No essential tremor is appreciated. Result/EKG - Labs CBC & BMP: 07/12/17 04:10 07/12/17 04:10 Lab Results: I have reviewed the past 24 hour labs Labs: Laboratory Results - last 24 hr 07/11/17 07/11/17 07/11/17 06:11 06:11 07:11 WBC RBC Hgb Hct MCV MCH MCHC RDW Plt Count MPV Neut % (Auto) Lymph % (Auto) [place] % (Auto) Eos % (Auto) Baso % (Auto) Neut # (Auto) Lymph # (Auto) [place] # (Auto) Eos # (Auto) Baso # (Auto) Immature Gran % Nucleated RBC % Immature Gran # Nucleated RBCs # Immature Plt Fraction Sodium Potassium Chloride Carbon Dioxide Anion Gap BUN Creatinine GFR Calculation BUN/Creatinine Ratio Glucose Hemoglobin A1c 6.1 Calculated Osmolality Calcium Magnesium Troponin I Triglycerides 63 Cholesterol 219 H LDL Cholesterol 159.0 VLDL Cholesterol 12.6 HDL Cholesterol 49 Heart Disease Risk Ratio 4.47 Urine Color Yellow Urine Appearance Clear Urine pH 6.0 Ur Specific [place] 1.014 Urine Protein Negative Urine Glucose (UA) Negative Urine Ketones Negative Urine Blood Small Urine Nitrate Negative Urine Bilirubin Negative Urine Urobilinogen < 2.0 H Urine Leukocytes Negative Urine RBC 2 Urine WBC <1 Ur Squamous Epith Cells Occasional Urine Mucus Occasional Ur Culture Indicated? Not indicated 07/11/17 07/11/17 07/11/17 09:15 11:28 11:30 WBC RBC Hgb Hct MCV MCH MCHC RDW Plt Count MPV Neut % (Auto) Lymph % (Auto) [place] % (Auto) Eos % (Auto) Baso % (Auto) Neut # (Auto) Lymph # (Auto) [place] # (Auto) Eos # (Auto) Baso # (Auto) Immature Gran % Nucleated RBC % Immature Gran # Nucleated RBCs # Immature Plt Fraction Sodium Potassium 3.2 L Chloride Carbon Dioxide Anion Gap BUN Creatinine GFR Calculation BUN/Creatinine Ratio Glucose Hemoglobin A1c Calculated Osmolality Calcium Magnesium Troponin I < 0.015 < 0.015 Triglycerides Cholesterol LDL Cholesterol VLDL Cholesterol HDL Cholesterol Heart Disease Risk Ratio Urine Color Urine Appearance Urine pH Ur Specific [place] Urine Protein Urine Glucose (UA) Urine Ketones Urine Blood Urine Nitrate Urine Bilirubin Urine Urobilinogen Urine Leukocytes Urine RBC Urine WBC Ur Squamous Epith Cells Urine Mucus Ur Culture Indicated? 07/11/17 07/11/17 07/12/17 15:26 16:54 04:10 WBC 7.6 RBC 4.43 Hgb 13.1 L Hct 38.7 L MCV 87.4 MCH 30 MCHC 33.9 RDW 14.6 Plt Count 235 MPV 10.8 Neut % (Auto) 61.7 Lymph % (Auto) 27.4 [place] % (Auto) 7.0 Eos % (Auto) 3.3 Baso % (Auto) 0.3 Neut # (Auto) 4.7 Lymph # (Auto) 2.1 [place] # (Auto) 0.5 Eos # (Auto) 0.3 Baso # (Auto) 0.0 Immature Gran % 0.3 Nucleated RBC % 0.0 Immature Gran # 0.02 Nucleated RBCs # 0.00 Immature Plt Fraction 0.0 Sodium Potassium 3.5 Chloride Carbon Dioxide Anion Gap BUN Creatinine GFR Calculation BUN/Creatinine Ratio Glucose Hemoglobin A1c Calculated Osmolality Calcium Magnesium Troponin I < 0.015 Triglycerides Cholesterol LDL Cholesterol VLDL Cholesterol HDL Cholesterol Heart Disease Risk Ratio Urine Color Urine Appearance Urine pH Ur Specific [place] Urine Protein Urine Glucose (UA) Urine Ketones Urine Blood Urine Nitrate Urine Bilirubin Urine Urobilinogen Urine Leukocytes Urine RBC Urine WBC Ur Squamous Epith Cells Urine Mucus Ur Culture Indicated? 07/12/17 07/12/17 04:10 04:10 WBC RBC Hgb Hct MCV MCH MCHC RDW Plt Count MPV Neut % (Auto) Lymph % (Auto) [place] % (Auto) Eos % (Auto) Baso % (Auto) Neut # (Auto) Lymph # (Auto) [place] # (Auto) Eos # (Auto) Baso # (Auto) Immature Gran % Nucleated RBC % Immature Gran # Nucleated RBCs # Immature Plt Fraction Sodium 143 142 Potassium 4.1 4.1 Chloride 108 H 107 Carbon Dioxide 28 28 Anion Gap 11.1 11.1 BUN 17 16 Creatinine 1.40 H 1.40 H GFR Calculation 90 90 BUN/Creatinine Ratio 12.00 11.00 Glucose 111 H 112 H Hemoglobin A1c Calculated Osmolality 287.0 284.1 Calcium 8.6 8.5 Magnesium 2.1 Troponin I Triglycerides Cholesterol LDL Cholesterol VLDL Cholesterol HDL Cholesterol Heart Disease Risk Ratio Urine Color Urine Appearance Urine pH Ur Specific [place] Urine Protein Urine Glucose (UA) Urine Ketones Urine Blood Urine Nitrate Urine Bilirubin Urine Urobilinogen Urine Leukocytes Urine RBC Urine WBC Ur Squamous Epith Cells Urine Mucus Ur Culture Indicated? Specialty Discharge - Follow Up or Referrals Follow up with: Reynaldo De La Rosa MD [Physician] - 07/24/17 1:10 pm (EKG, CBC, BMP WITH MAGNESIUM. APPT. JUL.24 @ 1:30 AND LABS 1:10) <Reynaldo De La Rosa - Last Filed: 07/12/17 13:35> Cardiology - PN: Subj Interval history: Patient personally examined and interviewed and chart reviewed. Patient stable with his discussed case with Mary Solorzano IN SERVICE COORDINATOR. Agree with the assessment and evaluation plan. This patient is stable cardiac standpoint. His blood pressures improved and his heart rate is managed with atrial fibrillation. He can be discharged to follow-up as an outpatient. I discussed with the patient is agreeable. Primary service is evaluating him for possible discharge. We will need to continue his anticoagulation and will return to clinic to evaluate for starting antiarrhythmic drug. His hopefully his blood pressure be managed. Exam (Progress Note) - Constitutional Vitals: Period Temp Pulse Resp BP Sys/Stein Pulse Ox Last 24 Hr 96.7 F-98.1 F 65-120 13-120 112-151/77-112 95-100 Result/EKG - Labs CBC & BMP: 07/12/17 04:10 07/12/17 04:10 Labs: Laboratory Results - last 24 hr 07/11/17 07/11/17 07/12/17 15:26 16:54 04:10 WBC 7.6 RBC 4.43 Hgb 13.1 L Hct 38.7 L MCV 87.4 MCH 30 MCHC 33.9 RDW 14.6 Plt Count 235 MPV 10.8 Neut % (Auto) 61.7 Lymph % (Auto) 27.4 [place] % (Auto) 7.0 Eos % (Auto) 3.3 Baso % (Auto) 0.3 Neut # (Auto) 4.7 Lymph # (Auto) 2.1 [place] # (Auto) 0.5 Eos # (Auto) 0.3 Baso # (Auto) 0.0 Immature Gran % 0.3 Nucleated RBC % 0.0 Immature Gran # 0.02 Nucleated RBCs # 0.00 Immature Plt Fraction 0.0 Sodium Potassium 3.5 Chloride Carbon Dioxide Anion Gap BUN Creatinine GFR Calculation BUN/Creatinine Ratio Glucose Calculated Osmolality Calcium Magnesium Troponin I < 0.015 07/12/17 07/12/17 04:10 04:10 WBC RBC Hgb Hct MCV MCH MCHC RDW Plt Count MPV Neut % (Auto) Lymph % (Auto) [place] % (Auto) Eos % (Auto) Baso % (Auto) Neut # (Auto) Lymph # (Auto) [place] # (Auto) Eos # (Auto) Baso # (Auto) Immature Gran % Nucleated RBC % Immature Gran # Nucleated RBCs # Immature Plt Fraction Sodium 143 142 Potassium 4.1 4.1 Chloride 108 H 107 Carbon Dioxide 28 28 Anion Gap 11.1 11.1 BUN 17 16 Creatinine 1.40 H 1.40 H GFR Calculation 90 90 BUN/Creatinine Ratio 12.00 11.00 Glucose 111 H 112 H Calculated Osmolality 287.0 284.1 Calcium 8.6 8.5 Magnesium 2.1 Troponin I
[2017-07-12] MEDS ORDERED: ASPIRIN EC 81 MG TABLET PO SCH (09:00)
[2017-07-12] MEDS ORDERED: VALSARTAN 160 MG TABLET PO SCH (09:00)
[2017-07-12] MEDS ORDERED: APIXABAN 5 MG TABLET PO SCH (09:00)
[2017-07-12] MEDS ORDERED: ASCORBIC ACID 500 MG TABLET PO SCH (09:00)
--- NOTE | 2017-07-12 09:22 | Discharge Summary ---
Hospital Course - Hospital Course Hospital Course: Mr. Parada is a 56-year-old -[place] male that was admitted through the emergency department with atrial fibrillation with rapid ventricular response with corresponding shortness of breath and chest pain. He was seen in consultation by cardiology. His echocardiogram showed a normal ejection fraction with a questionable bicuspid aortic valve without stenosis or regurgitation. He was started on a Cardizem drip and admitted to the intensive care unit. He was transitioned to Coreg and oral Cardizem with good effect. His Coreg dose was increased to 12.5 mg twice daily and he was started on Cardizem 60 mg twice daily. He was started on Eliquis for anticoagulation 5 mg by mouth twice daily. He was seen in consultation by Dr. De La Rosa and will follow up with him as an outpatient in 2 weeks. He was instructed to keep his outpatient follow-up appointment with his primary care physician already set up for July 24. The patient received new prescriptions for Coreg, Cardizem, Eliquis on discharge. His Diovan hydrochlorothiazide was changed to just Diovan 320 mg daily. This was due to dehydration on admission with hypokalemia as a result of hydrochlorothiazide administration. The patient was counseled regarding a low-salt diet and weighing himself regularly to assess his fluid status. 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 He has reached maximal benefit from this inpatient hospitalization and will be discharged home today as he has achieved rate control of his atrial fibrillation and has been started on therapeutic anticoagulation with Eliquis. His home medications were reviewed and reconciled. He is a full code. He is a non-smoker. Of note his cholesterol was elevated at 209 and he is on a statin. His hemoglobin A1c was 6.1 and he has no evidence of diabetes. - Time spent with patient Time with patient DS: Greater than 30 minutes (Total discharge time for this patient, including [id number] time, clinical documentation, medication reconciliation, and discharge planning was 38 minutes.) Diagnosis - Discharge Diagnosis (1) Atrial fibrillation with RVR Status: Acute (2) Essential hypertension Status: Chronic (3) Hypokalemia Status: Acute (4) FRANCHESCA (acute kidney injury) Status: Resolved (5) Dyslipidemia Status: Chronic (6) Chest pain Status: Resolved (7) Obesity Status: Chronic Specialty Discharge - Follow Up or Referrals Follow up with: Reynaldo De La Rosa MD [Physician] - 2 Weeks (EKG, CBC, BMP WITH MAGNESIUM ) Discharge Plan - Discharge Data Disposition: Disch To Home/Self Care Condition at Discharge: Stable Discharge Diet: low salt diet Activity: resume usual activities as tolerated Hygiene: no restrictions Weight Bearing at Discharge: full weight bearing Driving: no restrictions Contact your physician if you experience:: fever over 101, Shortness of breath, pain uncontrolled by pain medications - Discharge Medications New Carvedilol [Coreg] 12.5 mg PO BID #60 tablet Diltiazem Tab [Cardizem Tab] 60 mg PO BID #60 tablet Valsartan [Diovan] 320 mg PO DAILY #30 tablet Apixaban [Eliquis] 5 mg PO BID #60 tablet Ascorbic Acid Tab [Vitamin C Tab] 1,000 mg PO BID tablet Continue Pravastatin [Pravachol] 40 mg PO BEDTIME Discontinued Valsartan [Diovan] 320 mg PO DAILY - Follow Up or Referral Follow Up: Reynaldo De La Rosa MD [Physician] - 2 Weeks (EKG, CBC, BMP WITH MAGNESIUM ) - Forms/Instructions Additional Discharge Instructions: Patient is excused from work from 07/11/17 - . Exam - Constitutional Vitals: Period Temp Pulse Resp BP Sys/Stein Pulse Ox Last 24 Hr 96.7 F-98.1 F 58-94 13-23 93-160/52-120 95-100 Discharge Results Procedures and tests throughout hospitalization: Pending Orders 07/11/17 09:15 MRSA Surveillence, Inf Control Routine 07/13/17 04:00 BMP w/ Mg [Basic Metabolic Panel w/Mg] IN AM Basic Metabolic Panel IN AM Comp Blood Count Auto Diff IN AM 07/14/17 04:00 BMP w/ Mg [Basic Metabolic Panel w/Mg] IN AM Basic Metabolic Panel IN AM Comp Blood Count Auto Diff IN AM Labs on day of discharge: Labs from last 24 hours 07/12/17 07/12/17 07/12/17 04:10 04:10 04:10 WBC 7.6 RBC 4.43 Hgb 13.1 L Hct 38.7 L MCV 87.4 MCH 30 MCHC 33.9 RDW 14.6 Plt Count 235 MPV 10.8 Neut % (Auto) 61.7 Lymph % (Auto) 27.4 [place] % (Auto) 7.0 Eos % (Auto) 3.3 Baso % (Auto) 0.3 Neut # (Auto) 4.7 Lymph # (Auto) 2.1 [place] # (Auto) 0.5 Eos # (Auto) 0.3 Baso # (Auto) 0.0 Immature Gran % 0.3 Nucleated RBC % 0.0 Immature Gran # 0.02 Nucleated RBCs # 0.00 Immature Plt Fraction 0.0 Sodium 142 143 Potassium 4.1 4.1 Chloride 107 108 H Carbon Dioxide 28 28 Anion Gap 11.1 11.1 BUN 16 17 Creatinine 1.40 H 1.40 H GFR Calculation 90 90 BUN/Creatinine Ratio 11.00 12.00 Glucose 112 H 111 H Calculated Osmolality 284.1 287.0 Calcium 8.5 8.6 Magnesium 2.1 Troponin I Triglycerides Cholesterol LDL Cholesterol VLDL Cholesterol HDL Cholesterol Heart Disease Risk Ratio 07/11/17 07/11/17 07/11/17 16:54 15:26 11:30 WBC RBC Hgb Hct MCV MCH MCHC RDW Plt Count MPV Neut % (Auto) Lymph % (Auto) [place] % (Auto) Eos % (Auto) Baso % (Auto) Neut # (Auto) Lymph # (Auto) [place] # (Auto) Eos # (Auto) Baso # (Auto) Immature Gran % Nucleated RBC % Immature Gran # Nucleated RBCs # Immature Plt Fraction Sodium Potassium 3.5 Chloride Carbon Dioxide Anion Gap BUN Creatinine GFR Calculation BUN/Creatinine Ratio Glucose Calculated Osmolality Calcium Magnesium Troponin I < 0.015 < 0.015 Triglycerides Cholesterol LDL Cholesterol VLDL Cholesterol HDL Cholesterol Heart Disease Risk Ratio 07/11/17 07/11/17 07/11/17 11:28 09:15 06:11 WBC RBC Hgb Hct MCV MCH MCHC RDW Plt Count MPV Neut % (Auto) Lymph % (Auto) [place] % (Auto) Eos % (Auto) Baso % (Auto) Neut # (Auto) Lymph # (Auto) [place] # (Auto) Eos # (Auto) Baso # (Auto) Immature Gran % Nucleated RBC % Immature Gran # Nucleated RBCs # Immature Plt Fraction Sodium Potassium 3.2 L Chloride Carbon Dioxide Anion Gap BUN Creatinine GFR Calculation BUN/Creatinine Ratio Glucose Calculated Osmolality Calcium Magnesium Troponin I < 0.015 Triglycerides 63 Cholesterol 219 H LDL Cholesterol 159.0 VLDL Cholesterol 12.6 HDL Cholesterol 49 Heart Disease Risk Ratio 4.47 DS: Provider Date of admission: 07/11/17 08:17 Primary care physician: . No PCP Attending physician on admission: Gudelia Disla MD Consults: 07/11/17 08:40 Consult to Physician [CONS] Routine Comment: New onset Afib RVR Consulting Provider: Cardiology - [facility] Consulting Provider Notified: Yes Consult to Specialist Group: Cardiology Person Notified: NOLBERTO Date Notified: 07/11/17 Time Notified: 09:15 Discharging clinician: Gudelia Disla MD Expected date of discharge: 07/12/17
[2017-07-12 10:14] VITALS: BP 150/107
--- NOTE | 2017-07-12 10:47 | Physician Query Form ---
CLICK EDIT DOCUMENT TO SELECT QUERY ANSWER --> OK --> SIGN Sahra Gil RN, CCDS Certified Clinical Contract Associate W) [phone] (f) [phone] [email or web address] PROVIDERS: Make your selection(s) from the choices in EACH section by typing an "x" and enter comments in the comment section. Please use your independent medical judgment in providing your response. This request does not imply that any particular answer is desired or expected. CLINICAL INDICATORS: (Providers should not edit this section) The below diagnosis was documented in the record, but is not consistently noted in subsequent documentation. The medical record indicates that the patient was admitted with AF, FRANCHESCA, creatinine 1.50 on the that dropped to 1.40 on the , GFR of 72# that increased to 90# on the and the patient was treated with "D5 1/2 NS KCL 20 MEQ". Diagnosis: FRANCHESCA Please clarify the following: (X ) The above diagnosis was monitored, evaluated, and/or treated and is a confirmed diagnosis ( ) The above diagnosis was ruled out ( ) The above diagnosis is still a likely, suspected, probable diagnosis ( ) Other, please specify: ( ) Clinically unable to determine COMMENTS: PLEASE ALSO DOCUMENT RESPONSE IN PROGRESS NOTES AND/OR DISCHARGE SUMMARY Use of terms such as suspected, likely, or probable (associated with a specific diagnosis that is being evaluated, monitored, or treated as if it exists) are acceptable and can be restated in the discharge summary if not ruled out. MTDD
--- NOTE | 2017-07-12 17:47 | EKG Report ---
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
== END 2017-07-12 10:13 | disposition home or self-care (01) | DRG 309 ==
LOC: N.ED 06:00 → N.EDINP 08:17 → SUATTDRO 08:17 → N.ICU 09:00
PROVIDERS: ADMIT Family Medicine; ATTEND Family Medicine

== ENCOUNTER 2018-09-17 04:54 | Observation (INO) ==
[2018-09-17] MEDS ORDERED: ALUM/MAG/SIMETH/LIDO VISC 1:1 30 ML BOTTLE PO STA (05:10)
[2018-09-17] MEDS ORDERED: MORPHINE 4 MG/1 ML VIAL IV STA (05:10)
[2018-09-17] MEDS ORDERED: KETOROLAC 30 MG/1 ML VIAL IV STA (05:10)
[2018-09-17] MEDS ORDERED: ASPIRIN 325 MG TABLET PO STA (05:10)
[2018-09-17] MEDS ORDERED: ONDANSETRON 4 MG/2 ML VIAL IV STA (05:10)
[2018-09-17] MEDS ORDERED: NITROGLYCERIN 2% OINT 1 INCH/GM PACK TOP STA (05:10)
[2018-09-17 05:34] LABS: Basophils % 0.3 % (0.0-0.8); Eosinophils # 0.2 10*3/uL (0.0-0.87); Eosinophils % 2.6 % (0.00-10.9); Hematocrit 43.2 VOL% (42.0-52.0); Hemoglobin 14.1 GM/DL (14.0-18.0); Immature Granulocytes % 0.3 %; Immature Granulocytes Absolute 0.02 #; Lymphocytes # 1.7 10*3/uL (1.4-4.0); Lymphocytes % 28.4 % (21.2-54.2); Mean Corpuscular HGB Conc 32.6 GM/DL (32-36); Mean Corpuscular Hemoglobin 29 PG (27-34); Mean Corpuscular Volume 89.8 FL (87-102); Mean Platelet Volume 10.6 FL (9.6-12.0); Monocytes # 0.5 10*3/uL (0.11-0.8); Monocytes % 8.7 % (1.7-12.7); Neutrophils # 3.7 10*3/uL (1.4-7.4); Neutrophils % 59.7 % (38.7-73.9); Platelet Count 208 T/CUMM (130-400); Red Blood Count 4.81 MC/CUMM (3.8-5.5); Red Cell Distribution Width 13.3 % (9.3-17.3); White Blood Count 6.1 T/CUMM (4-12)
[2018-09-17 05:40] LABS: PT Patient Result 10.7 SECS
[2018-09-17 05:56] LABS: Albumin 3.5 G/DL (3.4-5.0); Bilirubin,Total 0.4 MG/DL (0.2-1.0); Calcium 8.9 MG/DL (8.5-10.1); Potassium 3.5 MMOL/L (3.5-5.1); Total Protein 7.5 G/DL (6.4-8.3)
[2018-09-17] MEDS ORDERED: ACETAMINOPHEN 325 MG TABLET PO PRN (09:11)
[2018-09-17] MEDS ORDERED: ALUM/MAG/SIMETH/LIDO VISC 1:1 30 ML BOTTLE PO PRN (09:11)
[2018-09-17] MEDS ORDERED: ONDANSETRON 4 MG/2 ML VIAL IV PRN (09:11)
[2018-09-17] MEDS ORDERED: KETOROLAC 30 MG/1 ML VIAL IV PRN (09:17)
[2018-09-17] MEDS ORDERED: PANTOPRAZOLE 40 MG TABLET PO SCH (09:30)
[2018-09-17] MEDS ORDERED: SODIUM CHLORIDE 0.45% 1,000 ML IV SCH (09:30)
[2018-09-17 12:54] LABS: Risk Ratio 5.02; VLDL CHOLESTEROL 11.2 MG/DL
[2018-09-17 16:19] VITALS: BP 136/83
[2018-09-17] MEDS ORDERED: FLECAINIDE 50 MG TABLET PO SCH (21:00)
[2018-09-17] MEDS ORDERED: ASCORBIC ACID 500 MG TABLET PO SCH (21:00)
[2018-09-17] MEDS ORDERED: CARVEDILOL 25 MG TABLET PO SCH (21:00)
[2018-09-17] MEDS ORDERED: APIXABAN 5 MG TABLET PO SCH (21:00)
[2018-09-17] MEDS ORDERED: DILTIAZEM 60 MG TABLET PO SCH (21:00)
[2018-09-18] MEDS ORDERED: ASPIRIN EC 81 MG TABLET PO SCH (09:00)
== END 2018-09-17 18:42 | disposition home or self-care (01) ==
LOC: N.EDINP 04:54 → N.ED 04:54 → N.2W 09:56 → N.TELEN 09:57
PROVIDERS: ADMIT Internal Medicine; ATTEND Internal Medicine